=== PATIENT | female | born 1940 | race Caucasian/White ===

== ENCOUNTER 2016-06-12 09:31 | Outpatient (CLI) | payer OTHER ==
--- NOTE | 2016-06-12 12:38 | DIAGNOSTIC IMAGING REPORT ---
PROCEDURE: US KIDNEY/RENAL COMPLETE INDICATION: HEMATURIA,CHRONIC KIDNEY DISEASE STAGE III TECHNIQUE: Moser scale and color Doppler sonographic imaging of the kidneys and urinary bladder was obtained. Intrarenal resistive indices were calculated when appropriate. COMPARISON: None. FINDINGS: The right kidney measures 9 x 4.2 x 4.0 cm Normal cortical thickness and echogenicity. No hydronephrosis, cyst, solid mass, or shadowing calculus. Normal color Doppler blood flow throughout the kidney. Resistive indices in the intrarenal parenchymal arteries range from 0.72-0.79 The left kidney measures 8.9 x 4.0 x 4.6 cm Normal cortical thickness and echogenicity. No hydronephrosis, cyst, solid mass, or shadowing calculus. Normal color Doppler blood flow throughout the kidney. Resistive indices in the intrarenal parenchymal arteries range from 0.69-0.83 The filled urinary bladder has a volume of 76 ml and a post void residual of 16 ml There is a bladder wall mass that measures 4.5 x 2.3 x 1.9 cm. This mass is heterogeneous and vascular. IMPRESSION: 1. Bladder wall mass measuring 4.5 x 2.3 x 1.9 cm. 2. Results were called to Dr. Cid
== END 2016-06-12 23:00 ==
LOC: US SRH 09:31
DX: N32.9 Bladder disorder, unspecified (principal); R31.9 Hematuria, unspecified; N18.3 Chronic kidney disease, stage 3 (moderate)

== ENCOUNTER 2016-06-27 11:16 | Outpatient (CLI) | payer OTHER ==
--- NOTE | 2016-06-27 12:48 | DIAGNOSTIC IMAGING REPORT ---
PROCEDURE: CT THORAX WITHOUT CONTRAST INDICATION: COUGH, LUNG NODULE TECHNIQUE: Noncontrast axial images were obtained of the chest with coronal and sagittal reformations. COMPARISON: Chest x-ray 06/24/2016. FINDINGS: The thyroid gland is normal. Thoracic aorta is normal caliber with mild atherosclerotic calcification. The great vessels demonstrates normal branching pattern. The central pulmonary arteries are normal caliber. Heart size is normal. Mild coronary calcification. No pericardial effusion. Nonenlarged prevascular, paratracheal, precarinal, and subcarinal lymph nodes present. No hilar adenopathy. The esophagus is normal in caliber with a small hiatal hernia. Along the anterolateral subpleural right middle lobe, there is a rounded, solid nodule measuring 8 mm. Very slight thickening of the overlying pleura. No calcification. Minor lingular atelectasis. Lungs are otherwise clear. The airway is patent and branches normally. No pleural effusions or pneumothorax. Osseous structures are intact. The images obtained of the upper abdomen demonstrate a density dependently in the gallbladder fundus, probably a partially calcified stone. IMPRESSION: 1. 8 mm solid anterior right middle lobe lung nodule. Differential diagnosis includes an infectious or inflammatory nodule, metastasis, or primary lung neoplasm. PET CT for a solitary pulmonary nodule is recommended. Correlate with any history of other primary neoplasm to exclude possibility of metastatic disease. 2. Nonspecific, nonenlarged mediastinal lymph nodes are present. 3. Small hiatal hernia. 4. Probable cholelithiasis.
== END 2016-06-27 23:00 ==
LOC: LAB SRH 11:16 → CT SRH 11:16
DX: R91.1 Solitary pulmonary nodule (principal); M32.10 Systemic lupus erythematosus, organ or system involvement unspecified; K44.9 Diaphragmatic hernia without obstruction or gangrene
CPT/HCPCS: 90190